=== PATIENT | male | born 1980 | race Caucasian/White ===

== ENCOUNTER 2017-05-19 11:21 | Emergency (ER) | payer SELFPAY ==
[2017-05-19] MEDS: ACETAMINOPHEN 500 MG TAB PO (11:56)
== END 2017-05-19 13:24 | disposition home or self-care (01) ==
LOC: FTE 11:21
DX: R56.9 Unspecified convulsions (principal); S02.2XXA Fracture of nasal bones, initial encounter for closed fracture; E11.9 Type 2 diabetes mellitus without complications; F17.210 Nicotine dependence, cigarettes, uncomplicated; X58.XXXA Exposure to other specified factors, initial encounter; Y92.9 Unspecified place or not applicable
CPT/HCPCS: 70450; 70486; 72125; 99285-25